=== PATIENT | male | born 2000 | race Two or more races ===

== ENCOUNTER 2023-12-29 17:05 | Emergency (ER) | payer OTHER ==
[~2023-12-29] VITALS: Ht 185.4 cm; Wt 113.5 kg
[2023-12-29 18:46] VITALS: BP 138/95; PULSE 87; RESP 18; TEMP 98; O2SAT 98
[2023-12-29] MEDS ORDERED: CYCL-614 PO (19:35)
[2023-12-29] MEDS ORDERED: IBUP-1456 PO (19:35)
== END 2023-12-29 19:49 | disposition home or self-care (01) ==
LOC: ER 17:05
DX: S16.1XXA Strain of muscle, fascia and tendon at neck level, initial encounter (principal); S39.012A Strain of muscle, fascia and tendon of lower back, initial encounter; S00.83XA Contusion of other part of head, initial encounter; V43.52XA Car driver injured in collision with other type car in traffic accident, initial encounter; Y93.89 Activity, other specified; Y92.488 Other paved roadways as the place of occurrence of the external cause; Y99.8 Other external cause status